=== PATIENT | male | born 1940 | race Caucasian/White ===

== ENCOUNTER → 2018-01-08 | Outpatient (CLI) | payer MEDICARE | END | disposition home or self-care (01) | LOC: KCIC US 14:34 | DX: N28.1 Cyst of kidney, acquired (principal) | CPT/HCPCS: 76770 ==

== ENCOUNTER → 2018-02-02 | Outpatient (CLI) | payer MEDICARE ==
[~2018-02-02] MED LIST: CONTRAST GIVEN MC
[2018-02-02] MEDS: IOHEXOL 300 MG/ML 100ML VIAL. IV (10:27)
[2018-02-02] MEDS: IOHEXOL 240 MG/ML 50ML VIAL. PO (10:28)
== END | disposition home or self-care (01) ==
LOC: KCIC CT 08:51
DX: N28.1 Cyst of kidney, acquired (principal); I70.0 Atherosclerosis of aorta; N28.89 Other specified disorders of kidney and ureter
CPT/HCPCS: 74170; Q9966; Q9967

== ENCOUNTER → 2018-03-13 | Outpatient (CLI) | payer MEDICARE | END | disposition home or self-care (01) | LOC: KCIC CT 13:08 | DX: K31.4 Gastric diverticulum (principal); K86.89 Other specified diseases of pancreas; N20.0 Calculus of kidney; I70.0 Atherosclerosis of aorta; N28.1 Cyst of kidney, acquired | CPT/HCPCS: 74176 ==

== ENCOUNTER → 2018-04-23 | Day surgery (SDC) | payer MEDICARE ==
[~2018-04-23] MED LIST changes: -CONTRAST GIVEN MC; +IV RINGERS,LACTATED 1000ML 1,000 ML IV; +LIDOCAINE 1% PF 2 ML VIAL. ID; +LIDOCAINE 2% PF Vial for OR 5 ML VIAL.; +MORPHINE SULFATE 2 MG/ML DISP.SYRIN. IV; +ONDANSETRON PF 4 MG/2 ML VIAL. IV; +PROCHLORPERAZINE 10 MG/2 ML VIAL. IV; +PROPOFOL 40 ML IV; +fentaNYL PF VIAL 100 MCG/2 ML VIAL IV
[2018-04-23 09:33] LABS: POC GLUCOSE 243 mg/dL (70-99)
[2018-04-23] MEDS: IV RINGERS,LACTATED 1000ML 1,000 ML IV (09:40)
== END | disposition home or self-care (01) ==
LOC: ENDOS 09:09
DX: K22.2 Esophageal obstruction (principal); K21.0 Gastro-esophageal reflux disease with esophagitis; K29.50 Unspecified chronic gastritis without bleeding; E11.9 Type 2 diabetes mellitus without complications; F32.9 Major depressive disorder, single episode, unspecified; Z82.3 Family history of stroke; Z82.49 Family history of ischemic heart disease and other diseases of the circulatory system; Z80.0 Family history of malignant neoplasm of digestive organs; Z79.84 Long term (current) use of oral hypoglycemic drugs; Z79.899 Other long term (current) drug therapy; Z98.890 Other specified postprocedural states; Z79.4 Long term (current) use of insulin; I70.0 Atherosclerosis of aorta; Z87.442 Personal history of urinary calculi
CPT/HCPCS: 43239; 82962; 88305; 88342; J2001; J2704